=== PATIENT | male | born 1990 | race Caucasian/White ===

== ENCOUNTER 2020-03-09 13:26 | Emergency (ER) | payer MEDICARE, MEDICAID, SELFPAY ==
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
[2020-03-09 13:42] VITALS: BP 138/83; PULSE 100; RESP 18; TEMP 36.8; O2SAT 100
--- NOTE | 2020-03-09 16:13 | PC.NURSE ---
no answer when pt called from waiting room
== END 2020-03-09 16:13 | disposition left against medical advice (07) ==
LOC: ANHED 16:29
PROVIDERS: Emergency Provider Emergency Medicine; PCP Family Medicine
DX: R07.81 Pleurodynia (principal)
CPT/HCPCS: 71101; 99199

== ENCOUNTER 2020-12-12 22:05 | Emergency (ER) | payer SELFPAY ==
--- NOTE | 2020-12-12 22:33 | PC.NURSE ---
called pts name @ [phone] & [phone], no response
== END 2020-12-12 22:33 | disposition left against medical advice (07) ==
DX: Z53.21 Procedure and treatment not carried out due to patient leaving prior to being seen by health care provider (principal)
CPT/HCPCS: 99199

== ENCOUNTER 2021-11-30 14:55 | Emergency (ER) | payer OTHER, SELFPAY ==
--- NOTE | ~2021-11-30 | XR_ITS ---
EXAMINATION: XR thoracic spine 2V DATE: 11/30/2021 15:24 INDICATION: Thoracic back pain TECHNIQUE: Two views of the thoracic spine are obtained. COMPARISON: 03/09/2020 FINDINGS: There is no fracture, dislocation, or subluxation. The vertebral body heights, alignment, a nd intervertebral disc spaces are normal. The paravertebral soft tissues are unremarkable. IMPRESSION: 1. No acute osseous abnormality. Reviewed, dictated and finalized at location A.
--- NOTE | 2021-11-30 15:06 | PC.NURSE ---
Pt ambulatory outside to smoke.
[2021-11-30 15:08] VITALS: BP 133/103; PULSE 97; RESP 16; TEMP 36.6; O2SAT 100
--- NOTE | 2021-11-30 15:13 | ED.BACK ---
HPI - Back Pain/Injury General Chief Complaint: Back Pain/Injury Stated Complaint: back pain x 1 month Time Seen by Provider: 11/30/21 15:13 History of Present Illness HPI Narrative: 30-year-old male presents to the emergency room for right-sided back pain for approximately 3 months. Patient states the pain is worse with certain movements of his right arm, and when he takes a deep breath. 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 Patient states that his pain is worse at the end of the day after lifting heavy objects. Patient denies any known injury or trauma. He states that he has been taking naproxen with some little relief. Related Data Allergies Allergy/AdvReac Type Severity Reaction Status Date / Time No Known Allergies Allergy Verified 08/30/21 15:36 Review of Systems Review of Systems: CONSTITUTIONAL: Denies fever, chills, or sweats. EYES: Denies visual changes, redness, or discharge. ENT: Denies rhinorrhea, congestion, sore throat, or otalgia. CARDIOVASCULAR: Denies chest pain, palpitations, or edema. RESPIRATORY: Denies cough or dyspnea. GASTROINTESTINAL: Denies abdominal pain, nausea, vomiting, or diarrhea. GENITOURINARY: Denies dysuria or hematuria. SKIN: Denies rash or itching. MUSCULOSKELETAL: Reports thoracic back pain NEUROLOGIC: Denies headache, numbness, dizziness, or weakness. PSYCHIATRIC: Denies anxiety or depression. [facility] Family History Family History Grandparent Family history of pancreatic cancer Family history of lung cancer Social History Social History Smoking status: Light tobacco smoker Second hand tobacco smoke exposure: No Alcohol intake: never Gender identity (if verbalized by the patient): Male Exam Narrative: GENERAL: Well-appearing, well-nourished, and in no acute distress. HEAD: Normocephalic, atraumatic. EYES: PERRLA and EOMI. CHEST: Clear to auscultation. No respiratory distress. No wheezes rales or rhonchi HEART: Regular rate and rhythm. No murmur heard. Normal peripheral pulses. ABDOMEN: Soft, nontender, nondistended, normal active bowel sounds. BACK: Tenderness to the posterior aspect of the right latissimus dorsi muscle, limited range of motion with the right arm in flexion and adduction EXTREMITIES: Normal range of motion. No edema. SKIN: Warm, dry, no rash. NEURO: No focal deficits. Alert and oriented x3. PSYCH: Normal mood and affect. Course Vital Signs Vital signs: Vital Signs Temperature 36.6 C 11/30/21 15:08 Pulse Rate 97 11/30/21 15:08 Respiratory Rate 16 11/30/21 15:08 Blood Pressure 133/103 H 11/30/21 15:08 Pulse Oximetry 100 11/30/21 15:08 Oxygen Delivery Room Air 11/30/21 15:08 Temperature 36.6 C 11/30/21 15:08 Pulse Rate 97 11/30/21 15:08 Respiratory Rate 16 11/30/21 15:08 Blood Pressure 133/103 H 11/30/21 15:08 Pulse Oximetry 100 11/30/21 15:08 Oxygen Delivery Room Air 11/30/21 15:08 MDM - Back Pain/Injury Imaging Data Radiologist's impression: Impressions Thoracic Spine X-Ray 11/30/21 15:32 IMPRESSION: 1. No acute osseous abnormality. Discharge Plan Discharge Clinical Impression: Acute thoracic myofascial strain Patient Disposition: Home, Self-Care Condition: Stable Instructions: Antibiotic Form, Back Pain (ED) Additional Instructions: Continue taking Tylenol and ibuprofen as needed for pain. Recommend not lifting anything more than 15 pounds with your right arm for the next 2 to 3 weeks. May use a heating pad to affected area. Prescriptions: New methocarbamol 750 mg tablet 750 mg PO TID Qty: 20 0RF Follow-up/Referrals: Jimmie Croft MD [Physician] - James Gray MD [Primary Care Provider] - Time of Disposition: 15:51
[2021-11-30] MEDS: methocarbamoL 500 MG TABLET PO (15:35)
== END 2021-11-30 16:07 | disposition home or self-care (01) ==
PROVIDERS: Emergency Provider Nurse Practitioner Family; PCP Family Medicine
DX: S29.012A Strain of muscle and tendon of back wall of thorax, initial encounter (principal); F17.200 Nicotine dependence, unspecified, uncomplicated; X58.XXXA Exposure to other specified factors, initial encounter
CPT/HCPCS: 72070; 99283; A9270